=== PATIENT | male | born 1945 | race Asian ===

== ENCOUNTER 2023-06-30 13:45 | Emergency (ER) | payer OTHER ==
[~2023-06-30] VITALS: Ht 167.6 cm; Wt 70.8 kg
[2023-06-30 13:45] VITALS: O2SAT 97
[~2023-06-30 13:45] MED LIST: ACET325T53 PO; Blood Sugar Diagnostic VI; DEXT50DI8 IV; HYDR-894 PO; INSU100V28 SQ; NIFE-35 PO; PANT40VI IV; PIPE2.257 IV
[2023-06-30 14:56] LABS: BASOPHILS # (AUTO) 0.1 K/UL (0.0-0.2); BASOPHILS % (AUTO) 0.6 % (0.0-2.0); EOSINOPHILS # (AUTO) 0.2 K/uL (0.0-0.7); EOSINOPHILS % (AUTO) 1.9 % (0.0-7.0); HEMATOCRIT 34.8 % (36.7-47.1); HEMOGLOBIN 11.7 g/dL (12.5-16.3); LYMPHOCYTES # (AUTO) 0.5 K/uL (0.8-4.8); LYMPHOCYTES % (AUTO) 5.2 % (20.5-51.5); MEAN CORPUSCULAR HEMOGLOBIN 33.6 uug (23.8-33.4); MEAN CORPUSCULAR HGB CONC 34 g/dL (32.5-36.3); MEAN CORPUSCULAR VOLUME 100.4 fL (73.0-96.2); MONOCYTES # (AUTO) 0.7 K/uL (0.1-1.30); MONOCYTES % (AUTO) 6.9 % (0.0-11.0); NEUTROPHILS # (AUTO) 8.8 K/uL (1.8-8.9); NEUTROPHILS % (AUTO) 85.4 % (38.5-71.5); PLATELET COUNT (AUTO) 281 K/uL (152-348); RED BLOOD CELL COUNT(AUTO) 3.47 MIL/uL (4.06-5.63); RED CELL DISTRIBUTION WIDTH 13.8 % (12.1-16.2); WHITE BLOOD COUNT (AUTO) 10.3 K/uL (3.6-10.2)
[2023-06-30 15:08] LABS: DIFFERENTIAL COMMENT 1
[2023-06-30 15:20] LABS: ALANINE AMINOTRANSFERASE 10 U/L (16-63); ALBUMIN 4.3 g/dL (3.4-5.0); ALKALINE PHOSPHATASE 54 U/L (50-136); ASPARTATE AMINOTRANSFERASE 8 U/L (15-37); BILIRUBIN,DIRECT 0.1 mg/dL (0.0-0.2); BILIRUBIN,TOTAL 0.4 mg/dL (0.2-1.0); CALCIUM 9.6 mg/dL (8.5-10.1); CARBON DIOXIDE 25 mmol/L (21-32); CHLORIDE 99 mmol/L (98-107); GLUCOSE 182 mg/dL (74-106); POTASSIUM 3.8 mmol/L (3.5-5.1); SODIUM SERUM 139 mmol/L (136-145); TOTAL PROTEIN, SERUM 7.9 g/dL (6.4-8.2); UREA NITROGEN, BLOOD 46 mg/dL (7-18)
[2023-06-30 15:22] LABS: CREATININE 8.3 mg/dL (0.6-1.3); LIPASE 382 U/L (16-77)
[2023-07-01] MEDS ORDERED: CLON0.1T PO (18:13)
[2023-07-01] MEDS ORDERED: ATOR20TA PO (18:13)
== END 2023-06-30 16:48 | disposition home or self-care (01) ==
LOC: ER 13:45
DX: T82.838A Hemorrhage due to vascular prosthetic devices, implants and grafts, initial encounter (principal); E78.5 Hyperlipidemia, unspecified; D64.9 Anemia, unspecified; F17.200 Nicotine dependence, unspecified, uncomplicated; Z79.899 Other long term (current) drug therapy; Z79.82 Long term (current) use of aspirin; Y92.89 Other specified places as the place of occurrence of the external cause
CPT/HCPCS: 36415; 71045; 83690; 84484; 85025; 85730; 86850; 86900; 86901; 93005; A4606; A4663